=== PATIENT | female | born 1975 | race Caucasian/White ===

== ENCOUNTER 2016-04-01 11:29 | Emergency (ER) | payer BC ==
[~2016-04-01] VITALS: Ht 157.5 cm; Wt 105.2 kg
[~2016-04-01 11:29] MED LIST: ALLO100T PO; AMOX1TAB43 PO; FEXO1TAB46 PO; FLNIN; GUAISYP4 PO; OMEP40CA41 PO; PRED10TA PO; ZFRODT4HP PO; ZOLM1TAB3 PO
[2016-04-01 11:34] VITALS: TEMP 37.1; Ht 157.5 cm; Wt 105.2 kg
[2016-04-01 11:45] VITALS: O2SAT 98
--- NOTE | 2016-04-01 12:39 | EMERGENCY ROOM VISIT NOTE ---
History Report prepared by Woody: Oskar Brizuela Under the Supervision of: Dr. Klaudia Byrne M.D. First contact with patient: 12:28 Chief Complaint: OVERDOSE (INTENTIONAL) Stated Complaint: OVERDOSE History of Present Illness The patient is a 41 year old female who presents to the Emergency Room with complaints of a sudden intentional overdose that occurred around 0700 this morning. The patient says she took 1 Dilaudid, but per the family, the patient was saying earlier that she took 2. Per the patient's family, the patient used to take pills, and then she went to a pain clinic and got hooked on pain medications. She then stopped for a while. However, around a month ago, the patient started taking pills again. The patient says she was not trying to hurt herself. The patient's family called the patient's doctor's office and the office recommended taking the patient to the Emergency Department. The patient could not keep her eyes open earlier and is still very sleepy. Any falls or injuries were denied. The patient has a history of migraines and takes a medication for that. Source of History: patient, family Onset: Around 0700 this morning Position: other (global - overdose) Quality: other (intentional - Dilaudid) Timing: other (sudden) Associated Symptoms: + fatigue (sleepy; hardly could keep eyes open earlier) Note: Associated symptoms: Denies any falls or injuries. Review of Systems See HPI for pertinent positives & negatives. A total of 10 systems reviewed and were otherwise negative. Past Medical & Surgical Medical Problems: (1) ASTHMA, UNSPECIFIED (2) Asthmatic bronchitis with acute exacerbation (3) BODY MASS INDEX 39.0-39.9, ADULT (4) MIGRAINE UNSPECIFIED W/O INTRACT MGRN W/O STATUS MIGRAINOSUS (5) SARCOIDOSIS (6) TUBAL LIGATION STATUS Family History Diabetes mellitus FH: heart disease Social History Smoking Status: Never Smoker Alcohol Use: occasionally Drug Use: none Marital Status: Occupation Status: employed Current/Historical Medications Scheduled Albuterol Inhaler (Ventolin Inhaler), 2 PUFFS INH BID PRN Allopurinol (Zyloprim), 100 MG PO DAILY Fexofenadine Hcl (Masha), 180 MG PO DAILY Fluticasone Propionate (Fluticasone Propionate), 2 SPRAYS NA DAILY Omeprazole (Prilosec), 40 MG PO QAM Oxybutynin Chloride (Oxybutynin Chloride), 5 MG PO BID Ranitidine Hcl (Zantac), 300 MG PO HS Zolmitriptan (Zomig), 5 MG PO PRN Scheduled PRN Albuterol Sulf (Albuterol Sulfate 0.083% For Inh), 3 ML INH Q4H PRN for PRN Allergies Coded Allergies: Valproic Acid (Verified Adverse Reaction, Severe, ALTERED MENTAL STATUS, ABD AND CHEST PAIN, 04/01/16) NSAIDs (Verified Adverse Reaction, Unknown, SEVERE STOMACH UPSET, 04/01/16) Physical Exam Vital Signs Date Time Temp Pulse Resp B/P Pulse Ox O2 Delivery O2 Flow Rate FiO2 04/01/16 17:50 115 16 133/67 96 Room Air 04/01/16 16:24 108 04/01/16 16:20 106 16 137/77 95 Room Air 04/01/16 15:26 111 16 153/99 96 Room Air 04/01/16 14:27 123 18 158/86 91 Room Air 04/01/16 13:38 106 14 151/94 93 Room Air 04/01/16 13:03 112 14 174/96 94 Room Air 04/01/16 12:21 117 04/01/16 11:45 98 Room Air 04/01/16 11:34 37.1 128 17 179/109 98 Room Air Physical Exam CONSTITUTIONAL: Appears under the influence of a mind-altering substance consistent with opiate overdose. Awake, alert, oriented, and cooperative. HEENT: No icterus, moist mucous membranes NECK: No meningismus, trachea is midline. CARDIOVASCULAR: Regular rate, normal perfusion RESPIRATORY: Unlabored breathing. Clear to auscultation. GASTROINTESTINAL: Non-tender GENITOURINARY: No flank tenderness MUSCULOSKELETAL: Full range of motion NEUROLOGIC: No acute gross focal deficits. PSYCHIATRIC: Normal affect SKIN: Normal for ethnicity. Medical Decision & Procedures ER Provider Diagnostic Interpretation: X-ray results as stated below per my interpretation and radiologist interpretation. Other radiology results as stated below per my review and radiologist interpretation. CT HEAD WITHOUT CONTRAST (CT) CLINICAL HISTORY: Acute change in mental status COMPARISON STUDY: No previous studies for comparison. TECHNIQUE: Axial CT of the brain is performed from the vertex to the skull base. IV contrast was not administered for this examination. CT DOSE: 638.56 mGycm FINDINGS: No intra or extra-axial mass lesions are visualized. There is no CT evidence of acute cortical infarction. There is no evidence of midline shift. There is no acute hemorrhage. No calvarial fractures are visualized. There is no evidence of pathologic ventricular dilatation. There is no evidence of acute sinusitis IMPRESSION: No acute intracranial findings Electronically signed by: Tejas Newman M.D. 04/01/2016 1:33 PM Dictated Date/Time: 04/01/2016 1:33 PM CHEST ONE VIEW PORTABLE CLINICAL HISTORY: Altered mental status. COMPARISON STUDY: Chest CT November 24, 2015. FINDINGS: Lung volumes are normal. No pneumothorax or pleural effusion is present. There is no evidence of pulmonary edema. Mild mediastinal widening is unchanged. Cardiac silhouette is stable. IMPRESSION: No acute cardiopulmonary findings. Electronically signed by: Jorge Bull M.D. 04/01/2016 1:15 PM Dictated Date/Time: 04/01/2016 1:14 PM Laboratory Results 04/01/16 11:55 Red Blood Count 4.72, Mean Corpuscular Volume 88.1, Mean Corpuscular Hemoglobin 30.1, Mean Corpuscular Hemoglobin Concent 34.1, Mean Platelet Volume 12.2, Neutrophils (%) (Auto) 69.9, Lymphocytes (%) (Auto) 11.9, Monocytes (%) (Auto) 14.6, Eosinophils (%) (Auto) 2.7, Basophils (%) (Auto) 0.6, Neutrophils # (Auto ) 4.66, Lymphocytes # (Auto) 0.79, Monocytes # (Auto) 0.97, Eosinophils # (Auto ) 0.18, Basophils # (Auto) 0.04 04/01/16 11:55 Test 04/01/16 11:55 04/01/16 12:53 04/01/16 13:10 04/01/16 15:20 White Blood Count 6.66 K/uL (4.8-10.8) Red Blood Count 4.72 M/uL (4.2-5.4) Hemoglobin 14.2 g/dL (12.0-16.0) Hematocrit 41.6 % (37-47) Mean Corpuscular Volume 88.1 fL (80-100) Mean Corpuscular Hemoglobin 30.1 pg (25-34) Mean Corpuscular Hemoglobin Concent 34.1 g/dl (32-36) Platelet Count 171 K/uL (130-400) Mean Platelet Volume 12.2 fL (7.4-10.4) Neutrophils (%) (Auto) 69.9 % Lymphocytes (%) (Auto) 11.9 % Monocytes (%) (Auto) 14.6 % Eosinophils (%) (Auto) 2.7 % Basophils (%) (Auto) 0.6 % Neutrophils # (Auto) 4.66 K/uL (1.4-6.5) Lymphocytes # (Auto) 0.79 K/uL (1.2-3.4) Monocytes # (Auto) 0.97 K/uL (0.11-0.59) Eosinophils # (Auto) 0.18 K/uL (0-0.5) Basophils # (Auto) 0.04 K/uL (0-0.2) RDW Standard Deviation 44.8 fL (36.4-46.3) RDW Coefficient of Variation 13.9 % (11.5-14.5) Immature Granulocyte % (Auto) 0.3 % Immature Granulocyte # (Auto) 0.02 K/uL (0.00-0.02) Anion Gap 9.0 mmol/L (3-11) Est Creatinine Clear Calc Drug Dose 77.4 ml/min Estimated GFR () 72.7 Estimated GFR (Non- 62.8 BUN/Creatinine Ratio 12.4 (10-20) Calcium Level 9.2 mg/dl (8.5-10.1) Total Bilirubin 0.5 mg/dl (0.2-1) Direct Bilirubin 0.2 mg/dl (0-0.2) Aspartate Amino Transf (AST/SGOT) 39 U/L (15-37) Alanine Aminotransferase (ALT/SGPT) 68 U/L (12-78) Alkaline Phosphatase 73 U/L (45-117) Total Protein 7.7 gm/dl (6.4-8.2) Albumin 4.2 gm/dl (3.4-5.0) Globulin 3.5 gm/dl (2.5-4.0) Albumin/Globulin Ratio 1.2 (0.9-2) Thyroid Stimulating Hormone (TSH) 3.540 uIu/ml (0.300-4.500) Human Chorionic Gonadotropin, Qual NEG (NEG) Acetaminophen Level < 2 ug/ml (10-30) Bedside Glucose 115 mg/dl (70-90) Ethyl Alcohol mg/dL < 3.0 mg/dl (0-3) Urine Color YELLOW Urine Appearance CLEAR (CLEAR) Urine pH 5.0 (4.5-7.5) Urine Specific [place] 1.013 (1.000-1.030) Urine Protein NEG (NEG) Urine Glucose (UA) NEG (NEG) Urine Ketones NEG (NEG) Urine Occult Blood NEG (NEG) Urine Nitrite NEG (NEG) Urine Bilirubin NEG (NEG) Urine Urobilinogen NEG (NEG) Urine Leukocyte Esterase TRACE (NEG) Urine WBC (Auto) 1-5 /hpf (0-5) Urine RBC (Auto) 0-4 /hpf (0-4) Urine Hyaline Casts (Auto) 1-5 /lpf (0-5) Urine Epithelial Cells (Auto) >30 /lpf (0-5) Urine Bacteria (Auto) NEG (NEG) Urine Opiates Screen POS (NEG) Urine Methadone, Qualitative NEG (NEG) Urine Barbiturates NEG (NEG) Urine Phencyclidine (PCP) Level NEG (NEG) Ur Amphetamine/Methamphetamine NEG (NEG) MDMA (Ecstasy) Screen NEG (NEG) Urine Benzodiazepines Screen NEG (NEG) Urine Cocaine Metabolite NEG (NEG) Urine Marijuana (THC) NEG (NEG) Labs reviewed by ED physician. Medications Administered Medications (Trade) Dose Ordered Sig/Natalie Route Start Time Stop Time Status Last Admin Dose Admin Sodium Chloride 1,000 ml @ 0 mls/hr Q0M STAT IV 04/01/16 12:46 04/01/16 12:48 DC 04/01/16 13:14 0 MLS/HR Sodium Chloride 1,000 ml @ 0 mls/hr Q0M STAT IV 04/01/16 12:46 04/01/16 12:48 DC 04/01/16 13:14 0 MLS/HR Sodium Chloride (Nss 1000ml) 1,000 ml @ 0 mls/hr Q0M STAT IV 04/01/16 15:15 04/01/16 15:18 DC 04/01/16 15:15 0 MLS/HR ECG Indication: other (overdose) Rate (beats per minute): 110 Rhythm: sinus tachycardia Findings: no ectopy, other (normal axis, normal ST segments) ED Course 1246: Ordered NSS 1000 ml @ 0 mls/hr Wide Open IV. 1252: Past medical records reviewed. The patient was evaluated in room B8. A complete history and physical examination was performed. 1517: I reevaluated the patient and her heart rate is down to 105 after 2 liters of normal saline. A 3rd liter was ordered. Per the nursing staff, the patient occasionally falls asleep and becomes mildly hypoxic. 1800: I reevaluated the patient and she is resting comfortably. The patient verbally expressed agreement and understanding of the treatment plan. The patient will be discharged. Medical Decision Differential diagnoses include: recreational misadventure, psychiatric disease, metabolic disturbance. 41-year-old presents to the emergency room with her mother for concern over opiate overdose. She is noted to have a history of prior evaluations through pain clinic although is not presently seeing pain management. Patient reports she has a chronic history of migraines and took a Dilaudid this morning and subsequently became fatigued. She was noted to occasionally fall asleep and become mildly hypoxic at about 80% per responded nicely to 2 L during her emergency Department course. She was there for many hours and became progressively more alert and awake and cooperative. She denied any suicidal intent, homicidal intent or any other psychotic features. She was noted to be initially tachycardic was hydrated with normal saline with heart rate subsequently returned to normal. Because of the somewhat unusual nature of the presenting complaints and family's concern over potential for opiate abuse mental health screening obtained and patient felt to be in no acute need of psychiatric services. Patient was therefore discharged from the emergency department. Impression Primary Impression: Opiate overdose Scribe Attestation The scribe's documentation has been prepared under my direction and personally reviewed by me in its entirety. I confirm that the note above accurately reflects all work, treatment, procedures, and medical decision making performed by me. Departure Information Dispostion Home / Self-Care Referrals Dmitri Marquez M.D. (PCP) Forms HOME CARE DOCUMENTATION FORM, IMPORTANT VISIT INFORMATION, WORK / SCHOOL INSTRUCTIONS Patient Instructions A Signature Page, ED Overdose Opiate, My [facility]
[2016-04-01] MEDS ORDERED: SODIUM CHLORIDE 0.9% 1000ML 1,000 ML IV STA ×3 (12:46→15:15)
[2016-04-01 12:54] LABS: BUN/CREATININE RATIO 12.4 (10-20); CALCIUM 9.2 mg/dl (8.5-10.1); CREATININE 1.1 mg/dl (0.60-1.20); POTASSIUM 3.8 mmol/L (3.5-5.1)
[2016-04-01 13:04] LABS: ALB/GLOB RATIO 1.2 (0.9-2); THYROID STIMULATING HORMONE 3.54 uIu/ml (0.300-4.500)
--- NOTE | 2016-04-01 13:17 | DIAGNOSTIC IMAGING REPORT ---
CHEST ONE VIEW PORTABLE CLINICAL HISTORY: Altered mental status. COMPARISON STUDY: Chest CT November 24, 2015. FINDINGS: Lung volumes are normal. No pneumothorax or pleural effusion is present. There is no evidence of pulmonary edema. Mild mediastinal widening is unchanged. Cardiac silhouette is stable. IMPRESSION: No acute cardiopulmonary findings. Electronically signed by: Jorge Bull M.D. 04/01/2016 1:15 PM Dictated Date/Time: 04/01/2016 1:14 PM
[2016-04-01 13:25] LABS: BASO % 0.6 %; BASO ABS # 0.04 K/uL (0-0.2); COMPLETE YES; EOS % 2.7 %; HEMATOCRIT 41.6 % (37-47); IG% 0.3 %; LYMPH % 11.9 %; LYMPH ABS # 0.79 K/uL (1.2-3.4); MEAN CELL VOLUME 88.1 fL (80-100); MEAN CORPUSCULAR HEMOGLOBIN 30.1 pg (25-34); MEAN CORPUSCULAR HGB CONC 34.1 g/dl (32-36); MEAN PLATELET VOLUME 12.2 fL (7.4-10.4); MONO % 14.6 %; NEUT % 69.9 %; PLATELET COUNT 171 K/uL (130-400); RED BLOOD COUNT 4.72 M/uL (4.2-5.4); WHITE BLOOD COUNT 6.66 K/uL (4.8-10.8)
--- NOTE | 2016-04-01 13:35 | DIAGNOSTIC IMAGING REPORT ---
CT HEAD WITHOUT CONTRAST (CT) CLINICAL HISTORY: Acute change in mental status COMPARISON STUDY: No previous studies for comparison. TECHNIQUE: Axial CT of the brain is performed from the vertex to the skull base. IV contrast was not administered for this examination. CT DOSE: 638.56 mGycm FINDINGS: No intra or extra-axial mass lesions are visualized. There is no CT evidence of acute cortical infarction. There is no evidence of midline shift. There is no acute hemorrhage. No calvarial fractures are visualized. There is no evidence of pathologic ventricular dilatation. There is no evidence of acute sinusitis IMPRESSION: No acute intracranial findings Electronically signed by: Tejas Newman M.D. 04/01/2016 1:33 PM Dictated Date/Time: 04/01/2016 1:33 PM
[2016-04-01] MEDS ORDERED: ALBU1NEB10 INH (15:10)
[2016-04-01 15:37] LABS: URINE APPEARANCE CLEAR (CLEAR); URINE BILIRUBIN NEG (NEG); URINE COLOR YELLOW; URINE EPITHELIAL CELL AUTO >30 /lpf (0-5); URINE NITRITE NEG (NEG); URINE SPECIFIC GRAVITY 1.013 (1.000-1.030); UROBILINOGEN NEG (NEG)
[2016-04-01 15:44] LABS: MANUAL MICROSCOPIC REQUIRED? NO; REVIEW REQ? NO
[2016-04-01 15:48] LABS: PREG INTERNAL NEGATIVE QC NEG CLEAR BACKGROUND; PREG INTERNAL POSITIVE QC POS CONTROL LINE
[2016-04-01 15:55] LABS: BENZODIAZEPINE, URINE NEG (NEG); COCAINE,URINE NEG (NEG); PHENCYCLIDINE, URINE NEG (NEG)
[2016-04-01] MEDS ORDERED: ALBUAER19 INH (15:57)
[2016-04-01 17:50] VITALS: BP 133/67; PULSE 115; O2SAT 96
[2016-04-01] MEDS ORDERED: DTR5 PO (22:42)
[2016-04-04 15:13] LABS: COD UR NEGATIVE NG/ML (CUTOFF=50); HYDROCOD UR NEGATIVE NG/ML (CUTOFF=50); HYDROMOR UR NEGATIVE NG/ML (CUTOFF=50); MORPHINE UR NEGATIVE NG/ML (CUTOFF=50); NORHYDROCODONE CONF UR NEGATIVE NG/ML (CUTOFF=50); OXYMORPH UR >20000 NG/ML (CUTOFF=50)
== END 2016-04-01 18:07 | disposition home or self-care (01) ==
LOC: C.EDB 11:34
DX: T40.2X2A Poisoning by other opioids, intentional self-harm, initial encounter (principal); X58.XXXA Exposure to other specified factors, initial encounter; J45.909 Unspecified asthma, uncomplicated; G43.909 Migraine, unspecified, not intractable, without status migrainosus; D86.9 Sarcoidosis, unspecified; Z83.3 Family history of diabetes mellitus; Z82.49 Family history of ischemic heart disease and other diseases of the circulatory system; Z79.899 Other long term (current) drug therapy

== ENCOUNTER 2016-09-26 15:00 | Emergency (ER) | payer BC ==
[~2016-09-26] VITALS: Ht 157.5 cm; Wt 104.0 kg
[~2016-09-26 15:00] MED LIST changes: +ALBU1NEB10 INH; +ALBUAER19 INH; -AMOX1TAB43 PO; +DTR5 PO; -GUAISYP4 PO; -PRED10TA PO; -ZFRODT4HP PO
[2016-09-26 15:03] VITALS: TEMP 36.7; Ht 157.5 cm; Wt 104.0 kg
[2016-09-26] MEDS ORDERED: HYDROmorphone HCL 4 MG/ML SYR IM STA (15:19)
[2016-09-26] MEDS ORDERED: PROMETHAZINE HCL INJ 25 MG/ML 1 ML VIAL IM STA (15:19)
[2016-09-26] MEDS ORDERED: HYDROmorphone INJ 2 MG/ML SYR/VIAL ONE (15:23)
--- NOTE | 2016-09-26 15:33 | EMERGENCY ROOM VISIT NOTE ---
History Report prepared by Woody: Gissell Alicea Under the Supervision of: Dr. Ryan Beavers M.D. First contact with patient: 15:11 Chief Complaint: HEADACHE Stated Complaint: MIGRAINE History of Present Illness The patient is a 41 year old female who presents to the Emergency Room with complaints of constant bilateral headache that started yesterday afternoon. She rates her discomfort as a 7/10 in severity. The patient has a history of migraines and states that this headache is consistent with her typical migraines. The patient is also experiencing nausea, but denies vomiting. She is also experiencing "muscle spasms" in the back of her neck and photophobia. She denies fevers and any weakness or difficulty with her arms or legs.The patient states that she took Excedrin Migraine last night as well as 2 Maxalt and 1 Zofran this morning without any relief. The patient states that she took the second Maxalt around 1000. The patient denies any recent head trauma. Source of History: patient Onset: yesterday afternoon Position: head Quality: other (headache) Timing: constant Modifying Factors (Relieving): other (None) Associated Symptoms: + neck pain ("muscle spasms" ), + nausea, No fevers, No vomiting, No weakness Note: photophobia Review of Systems See HPI for pertinent positives & negatives. A total of 10 systems reviewed and were otherwise negative. Past Medical & Surgical Medical Problems: (1) ASTHMA, UNSPECIFIED (2) Asthmatic bronchitis with acute exacerbation (3) BODY MASS INDEX 39.0-39.9, ADULT (4) MIGRAINE UNSPECIFIED W/O INTRACT MGRN W/O STATUS MIGRAINOSUS (5) SARCOIDOSIS (6) TUBAL LIGATION STATUS Family History Diabetes mellitus FH: heart disease Social History Smoking Status: Never Smoker Alcohol Use: occasionally Drug Use: none Marital Status: Occupation Status: employed Current/Historical Medications Scheduled Allopurinol (Allopurinol), 100 MG PO DAILY Citalopram Hydrobromide (Citalopram Hydrobromide), 10 MG PO DAILY Esomeprazole Magnesium (Esomeprazole Magnesium), 20 MG PO DAILY Ranitidine Hcl (Zantac), 300 MG PO HS Scheduled PRN Albuterol Sulfate (Proair Respiclick), 1-2 PUFFS INH Q4-6HRS PRN for SOB/ Wheezing Rizatriptan Benzoate (Rizatriptan Benzoate), 10 MG PO UD PRN for Migraine Allergies Coded Allergies: Valproic Acid (Verified Adverse Reaction, Severe, ALTERED MENTAL STATUS, ABD AND CHEST PAIN, 04/01/16) NSAIDs (Verified Adverse Reaction, Unknown, SEVERE STOMACH UPSET, 04/01/16) Physical Exam Vital Signs Date Time Temp Pulse Resp B/P (MAP) Pulse Ox O2 Delivery O2 Flow Rate FiO2 09/26/16 15:39 77 18 129/74 95 Room Air 09/26/16 15:03 36.7 83 16 171/114 93 Room Air Physical Exam GENERAL: Patient is in no acute distress. HEENT: No acute trauma, normocephalic atraumatic, mucous membranes moist, no nasal congestion, no scleral icterus. Pupils equal and reactive to light. NECK: No stridor, no adenopathy, no meningismus, trachea is midline. LUNGS: Clear to auscultation bilaterally, no wheeze, no rhonchi, breath sounds equal. HEART: Without murmurs gallops or rubs, regular rate and rhythm. ABDOMEN: Soft, nontender, bowel sounds positive, no hernias, no peritonitis. EXTREMITIES: No cyanosis or edema, full range of motion of all the joints without pain or difficulty, no signs for acute trauma. NEUROLOGIC: Oriented x 3, no acute motor or sensory deficits, no focal weakness. No cerebellar deficits. SKIN: No rash, no jaundice, no diaphoresis Medical Decision & Procedures Medications Administered Medications (Trade) Dose Ordered Sig/Natalie Route Start Time Stop Time Status Last Admin Dose Admin Promethazine HCl (Phenergan Inj) 25 mg NOW STAT IM 09/26/16 15:19 09/26/16 15:21 DC 09/26/16 15:26 25 MG Hydromorphone HCl (Dilaudid Inj) 2 mg STK-MED ONCE .ROUTE 09/26/16 15:23 09/26/16 15:24 DC 09/26/16 15:26 2 MG ED Course 1517: The patient was evaluated in room B10. A complete history and physical exam was performed. 1519: Ordered Phenergan Inj 25 mg IM 1523: Ordered Dilaudid Inj 2 mg IM 1550: Reevaluated the patient. Discussed results and discharge instructions: she verbalized understanding and agreement. The patient is ready for discharge. Medical Decision Differential diagnoses considered include intracranial bleeding, stroke, meningitis, head trauma, migraine, tension headache, dehydration. Medication Reconciliation: I attest that I have personally reviewed the patient' s current medication list. Blood Pressure Screening: Patient was found to have an elevated blood pressure and was referred to their primary doctor for recheck and further treatment. The patient presents with a headache that she describes as a migraine. She has had previous similar migraines. There has been no fever, no one-sided weakness , no head trauma. On exam, there is no meningismus, she is not toxic. The patient received IM Dilaudid and IM Phenergan as she has in the past. She was somewhat hypertensive here, she feels this may be from the pain but I have referred her to her doctor's office for a blood pressure recheck. The patient was encouraged to return if worsening. Her headache does sound migrainous. Impression Primary Impression: Headache Additional Impression: Hypertension Scribe Attestation The scribe's documentation has been prepared under my direction and personally reviewed by me in its entirety. I confirm that the note above accurately reflects all work, treatment, procedures, and medical decision making performed by me. Departure Information Dispostion Home / Self-Care Referrals Dmitri Marquez M.D. (PCP) Forms HOME CARE DOCUMENTATION FORM, IMPORTANT VISIT INFORMATION Patient Instructions My [facility] Additional Instructions fluids rest return if worsening your blood pressure was elevated here--follow with your doctor for a recheck Problem Qualifiers Primary Impression: Headache Headache type: unspecified Headache chronicity pattern: unspecified pattern Intractability: not intractable Qualified Codes: R51 - Headache Additional Impression: Hypertension Hypertension type: unspecified secondary hypertension Qualified Codes: I15.9 - Secondary hypertension, unspecified
[2016-09-26] MEDS ORDERED: ALBU18002 INH (15:37)
[2016-09-26] MEDS ORDERED: CITA10TA4 PO (15:37)
[2016-09-26] MEDS ORDERED: ALL100 PO (15:37)
[2016-09-26] MEDS ORDERED: RIZA1TAB11 PO (15:37)
[2016-09-26] MEDS ORDERED: ESOM45CA PO (15:37)
[2016-09-26 16:06] VITALS: BP 118/78; PULSE 72; O2SAT 95
[2016-09-26] MEDS ORDERED: RANI300T PO (19:39)
== END 2016-09-26 16:08 | disposition home or self-care (01) ==
LOC: C.EDB 15:01
DX: R51 Headache (principal); I15.9 Secondary hypertension, unspecified; J45.909 Unspecified asthma, uncomplicated; D86.9 Sarcoidosis, unspecified; Z98.51 Tubal ligation status; Z83.3 Family history of diabetes mellitus

== ENCOUNTER 2017-01-20 17:55 | Emergency (ER) | payer BC ==
[~2017-01-20] VITALS: Ht 157.5 cm; Wt 106.9 kg
[~2017-01-20 17:55] MED LIST changes: +ALBU18002 INH; -ALBU1NEB10 INH; -ALBUAER19 INH; +ALL100 PO; -ALLO100T PO; +CITA10TA4 PO; -DTR5 PO; +ESOM45CA PO; -FEXO1TAB46 PO; -FLNIN; -OMEP40CA41 PO; +RANI300T PO; +RIZA1TAB11 PO; -ZOLM1TAB3 PO
[2017-01-20 18:07] VITALS: Ht 157.5 cm; Wt 106.9 kg
[2017-01-20] MEDS ORDERED: DiphenhydrAMINE HCL 50 MG/ML VIAL IV STA (18:50)
[2017-01-20] MEDS ORDERED: PROCHLORPERAZINE 5 MG/ML 2 ML VIAL IV STA (18:50)
[2017-01-20] MEDS ORDERED: DEXAMETHASONE SOD INJ 10 MG/ML VIAL IV ONE (19:00)
[2017-01-20] MEDS ORDERED: SODIUM CHLORIDE 0.9% 1000ML 1,000 ML IV ONE (19:00)
[2017-01-20] MEDS ORDERED: ACETAMINOPHEN IV 100 ML IV ONE (19:00)
[2017-01-20 19:35] VITALS: BP 142/95; PULSE 83; TEMP 36.8; O2SAT 98
--- NOTE | 2017-01-20 23:18 | EMERGENCY ROOM VISIT NOTE ---
ED Visit Note First contact with patient: 18:12 CHIEF COMPLAINT: Migraine headache HISTORY OF PRESENT ILLNESS: This 42-year-old female patient presented to the emergency department with ongoing daily headaches for the past 3 weeks. The patient has a history of migraines. The patient states the migraine is similar to their typical migraines. There has been associated photophobia, phonophobia, nausea and vomiting. The patient denies fever or chills recently, and there is no weakness or numbness of the extremities. There is no difficulty with speech or vision. No trauma to the head and no neck pain. The pain is severe, constant , and it is slowly increasing in severity. The patient rates the pain as dull and 7/10. The patient has taken Maxalt and Excedrin which generally help for a short period of time when combined with sleep. Her headaches continue to return. This is not the worst headache of the life and is similar to previous migraines. Previous imaging studies of the brain have been normal. REVIEW OF SYSTEMS: A review of systems was performed with positives and pertinent negatives listed in the history of present illness. All other systems were reviewed and are negative. ALLERGIES: NSAIDs, valproic acid MEDICATIONS: See EMR PMH: Chronic migraines SOCIAL HISTORY: Lives [place] PHYSICAL EXAM: Vital Signs: Reviewed Nurse's notes, vital signs stable. GENERAL: White female, who appears in pain, but non toxic in appearance and in no acute distress. MENTAL STATUS: Alert, oriented, and coherent. HEENT: Normocephalic. PERRLA. EOMI. Nares patent without nuchal rigidity. Tympanic membranes pearly beltran without erythema or effusion bilaterally. Mucous membranes moist. NECK: Supple, no nuchal rigidity, nontender, no lymphadenopathy. HEART: Regular rhythm and normal rate without murmurs, ectopy, gallops, or rubs. LUNGS: Clear to auscultation bilaterally without wheezes, rales or rhonchi. No dullness to percussion. No accessory muscle use. No retractions. SKIN: Normal. NEUROLOGICAL: Pupils are round, equal and react to light. The optic fundi are normal and the discs are flat. The patient moves all extremities well and the gait is normal. EMERGENCY DEPARTMENT COURSE: Physical exam and history were performed. Nursing notes and EMR were reviewed. The patient has a history of chronic migraines. She currently is on Maxalt and Excedrin, which do improve her symptoms, however the continue to return. Her symptoms are not particularly worse today than they have been in the past. The patient hasn't seen several times previously with this complaint with normal imaging. She and I had a lengthy discussion regarding options of care. The patient was given 1 L IV saline, 5 mg IV Compazine, 50 mg IV Benadryl, and 1 g IV Tylenol. The patient will need to follow with her primary care physician for further care and management. She may also wish to follow with neurology, as evidently she has seen [facility] neurology in the past. The patient was pleased with this plan and voiced understanding. The differential diagnosis includes acute intracranial bleed, meningitis, encephalitis, mass or mass effect, sinusitis, infection, tumor, headache, temporal arteritis and carbon monoxide exposure, and migraine. The patient was discharged home in stable condition with her driving. Problem List Medical Problems: (1) ASTHMA, UNSPECIFIED Status: Chronic (2) BODY MASS INDEX 39.0-39.9, ADULT Status: Chronic (3) MIGRAINE UNSPECIFIED W/O INTRACT MGRN W/O STATUS MIGRAINOSUS Status: Chronic (4) SARCOIDOSIS Status: Chronic (5) TUBAL LIGATION STATUS Status: Resolved Current/Historical Medications Scheduled Esomeprazole Magnesium (Esomeprazole Magnesium), 20 MG PO DAILY Ranitidine Hcl (Zantac), 300 MG PO HS Scheduled PRN Albuterol Sulfate (Proair Respiclick), 1-2 PUFFS INH Q4-6HRS PRN for SOB/ Wheezing Rizatriptan Benzoate (Rizatriptan Benzoate), 10 MG PO UD PRN for Migraine Allergies Coded Allergies: Valproic Acid (Verified Adverse Reaction, Severe, ALTERED MENTAL STATUS, ABD AND CHEST PAIN, 04/01/16) NSAIDs (Verified Adverse Reaction, Unknown, SEVERE STOMACH UPSET, 04/01/16) Vital Signs Date Time Temp Pulse Resp B/P (MAP) Pulse Ox O2 Delivery O2 Flow Rate FiO2 01/20/17 19:35 36.8 83 20 142/95 98 01/20/17 18:07 36.8 83 20 142/95 98 Room Air Medications Administered Medications (Trade) Dose Ordered Sig/Natalie Route Start Time Stop Time Status Last Admin Dose Admin Dexamethasone Sodium Phosphate (Decadron Inj) 10 mg NOW ONCE IV 01/20/17 19:00 01/20/17 19:01 DC 01/20/17 19:00 10 MG Prochlorperazine Edisylate (Compazine Inj) 5 mg NOW STAT IV 01/20/17 18:50 01/20/17 18:52 DC 01/20/17 19:00 5 MG Diphenhydramine HCl (Benadryl Inj) 50 mg NOW STAT IV 01/20/17 18:50 01/20/17 18:52 DC 01/20/17 18:59 50 MG Sodium Chloride 1,000 ml @ 999 mls/hr Q1H1M ONCE IV 01/20/17 19:00 01/20/17 19:56 DC 01/20/17 19:01 999 MLS/HR Acetaminophen 100 ml @ 400 mls/hr NOW ONCE IV 01/20/17 19:00 01/20/17 19:14 DC 01/20/17 19:00 400 MLS/HR Departure Information Impression Primary Impression: Migraine Dispostion Home / Self-Care Condition GOOD Referrals Dmitri Marquez M.D. (PCP) Forms HOME CARE DOCUMENTATION FORM, IMPORTANT VISIT INFORMATION Patient Instructions My [facility] Additional Instructions You were seen and evaluated today on an emergency basis only. This is not a substitute for, or an effort to provide, complete comprehensive medical care. It is not possible to recognize and treat all injuries or illnesses in a single emergency department visit. For this reason it is recommended that you followup with your primary care physician or neurologist this week for ongoing care and evaluation. DO NOT drive, drink alcohol, operate machinery, or perform dangerous activities today. You were given medications in the ER that can affect your ability to safely function or operate a vehicle. Rest today in a quiet, peaceful, dark environment and get a full 8-10 hrs of sleep tonight. Avoid loud noises, smoke/smoking, alcohol, bright lights, stress, or physical exertion today to minimize the chance the headache may return. Continue current medications. Acetaminophen(Tylenol) may be used for fever or pain. Use 1000mg every six hours as needed. Avoid using more than 4000mg in a 24 hour period. Return to the ER for passing out, worsening headache, vision problems, neck stiffness/pain, fevers, vomiting, worsening of your condition, or as needed.
== END 2017-01-20 19:36 | disposition home or self-care (01) ==
LOC: C.EDB 17:56 → C.EDD 19:36
DX: G43.909 Migraine, unspecified, not intractable, without status migrainosus (principal); J45.909 Unspecified asthma, uncomplicated; D86.9 Sarcoidosis, unspecified

== ENCOUNTER → 2017-04-14 | Outpatient (CLI) | payer BC ==
[~2017-04-14] MED LIST changes: -ALL100 PO; -CITA10TA4 PO
--- NOTE | 2017-04-14 10:47 | DIAGNOSTIC IMAGING REPORT ---
TWO VIEW CHEST CLINICAL HISTORY: Cough. FINDINGS: PA and lateral chest radiographs are compared to study dated 04/01/2016 and correlated with chest CT dated 11/24/2015. The examination is degraded by large body habitus. The cardiomediastinal silhouette is unremarkable. The lungs and pleural spaces are clear. There is no pneumothorax. The bony thorax appears intact. Cholecystectomy clips are seen in the right upper quadrant. IMPRESSION: No active disease in the chest. Electronically signed by: Ryan Villanueva M.D. 04/14/2017 10:46 AM Dictated Date/Time: 04/14/2017 10:45 AM
== END | disposition home or self-care (01) ==
LOC: C.RAD1850 10:21
PROVIDERS: ATTEND Physician Assistant Medical
DX: R05 Cough (principal)